=== PATIENT | female | born 1965 | race Caucasian/White ===

== ENCOUNTER 2023-11-23 12:43 | Emergency (ER) | payer BC ==
[2023-11-23 13:17] VITALS: BP 143/74; PULSE 95; RESP 17; TEMP 98.5; BMI 27.9
[2023-11-23] MEDS ORDERED: ACETAMINOPHEN 1000 MG/100 ML BAG IVPB ONE (13:36)
[2023-11-23 13:55] LABS: EPI CELLS 2 /uL (0-25.1); HYALINE CASTS 1 /uL (0-3.1); PH,URINE 5.5 (5.0-8.0); URINE APPEARANCE CLOUDY; URINE BACTERIA >9,000 /uL (0-1359); URINE BILIRUBIN NEGATIVE (NEGATIVE); URINE COLOR YELLOW; URINE GLUCOSE (UA) NEGATIVE (NEGATIVE); URINE KETONE NEGATIVE (NEGATIVE); URINE LEUK ESTERASE 3+ (NEGATIVE); URINE NITRITE NEGATIVE (NEGATIVE); URINE PROTEIN NEGATIVE (NEGATIVE); URINE RBC 12 /uL (0-23.9); URINE UROBILINOGEN 0.2 mg/dL (0.2-1.0); URINE WBC 648 /uL (0-25.8)
[2023-11-23] MEDS ORDERED: ACETAMINOPHEN INJECTION 100 ML IVPB ONE (14:34)
[2023-11-23 14:41] LABS: BASO % 0.8 % (0-2.0); EOS % 1.3 % (0-4.5); HEMATOCRIT 40.4 % (32.4-45.2); HEMOGLOBIN 13.2 GM/dL (10.7-15.3); LYMPH % 34.8 % (8-40); MCHC 32.8 g/dl (32.0-36.0); MEAN CELL VOLUME 91.5 fl (80-96); MEAN PLT VOLUME 9.2 fl (7.5-11.1); MONO % 5.9 % (3.8-10.2); NEUT % 57.2 % (42.8-82.8); PLATELET COUNT 310 10^3/uL (134-434); RBC 4.42 M/mm3 (3.60-5.2); RDW 12.8 % (11.6-15.6); WHITE BLOOD COUNT 8.3 K/mm3 (4.0-10.0)
[2023-11-23 14:58] LABS: POTASSIUM 4.5 mmol/L (3.5-5.1)
[2023-11-23 15:03] LABS: ALBUMIN 3.9 g/dl (3.4-5.0); BLOOD UREA NITROGEN 11.8 mg/dL (7-18)
[2023-11-23] MEDS ORDERED: CEPHALEXIN MONOHYDRATE 500 MG CAPSULE (UD) PO ONE (15:04)
[2023-11-23 15:07] LABS: CREATININE 0.6 mg/dL (0.55-1.3)
[2023-11-23 15:08] LABS: BILIRUBIN,TOTAL 0.9 mg/dL (0.2-1); TOT PROT 7.8 g/dl (6.4-8.2)
[2023-11-23] MEDS ORDERED: CEPHALEXIN MONOHYDRATE 500 MG CAPSULE (UD) ONE (15:10)
== END 2023-11-23 16:24 | disposition home or self-care (01) ==
LOC: JER 12:43
PROC: 3E033NZ Introduction of Analgesics, Hypnotics, Sedatives into Peripheral Vein, Percutaneous Approach (ICD-10-PCS; principal; 2023-11-23)
DX: N39.0 Urinary tract infection, site not specified (principal); R10.31 Right lower quadrant pain; N12 Tubulo-interstitial nephritis, not specified as acute or chronic; R30.0 Dysuria; R35.0 Frequency of micturition; M16.11 Unilateral primary osteoarthritis, right hip; M25.551 Pain in right hip
CPT/HCPCS: 36415; 73502-TC-RT-FY; 74176-TC; 80053; 81003; 83735; 85025; 87086; 87186; 99285-25